=== PATIENT | female | born 1965 | race African-American/Black ===

== ENCOUNTER 2020-04-23 10:53 | Inpatient (IN) | payer BC, SELFPAY ==
[~2020-04-23] VITALS: Ht 172.7 cm; Wt 74.8 kg
[2020-04-23] MEDS ORDERED: NACL 0.9% 1,000 ML IV ONE (10:57)
[2020-04-23] MEDS ORDERED: KETOROLAC TROMETHAMINE 30 MG VIAL IVP ONE (11:00)
[2020-04-23 11:17] VITALS: BP_SYST 142
[2020-04-23] MEDS ORDERED: CEFEPIME 2 GM in D5W 100 ML IV ONE (11:45)
[2020-04-23 12:14] LABS: BASOPHILS # (AUTO) 0.1 K/uL (0.0-0.2); BASOPHILS % (AUTO) 0.5 % (0.0-2.0); EOSINOPHILS % (AUTO) 0.2 % (0.0-4.0); HEMATOCRIT 44.5 % (36-48); HEMOGLOBIN 14.4 g/dL (12.0-16.0); LYMPHOCYTES # (AUTO) 1.3 K/uL (1.0-5.5); LYMPHOCYTES % (AUTO) 10.7 % (20.5-51.5); MEAN CORPUSCULAR HEMOGLOBIN 28 pg (27-31); MEAN CORPUSCULAR HGB CONC 32 % (32-36); MEAN CORPUSCULAR VOLUME 86 fL (79.0-98.0); MONOCYTES # (AUTO) 0.4 K/uL (0.0-1.0); MONOCYTES % (AUTO) 3.6 % (1.7-9.3); NEUTROPHILS # (AUTO) 10.4 K/uL (1.8-7.7); PLATELET COUNT (AUTO) 231 K/uL (130-430); RED BLOOD CELL COUNT(AUTO) 5.17 MIL/uL (4.2-6.2); RED CELL DISTRIBUTION WIDTH 16.8 % (9.0-15.0); WHITE BLOOD COUNT (AUTO) 12.3 K/uL (4.8-10.8)
[2020-04-23 12:23] LABS: CALCIUM 9.8 mg/dL (8.4-11.0); CREATININE 1.35 mg/dL (0.55-1.30); POTASSIUM 4.2 mmol/L (3.5-5.1)
[2020-04-23 12:29] LABS: ALBUMIN 3.8 g/dL (3.4-4.8); TOTAL BILIRUBIN 0.8 mg/dL (0.0-1.0)
[2020-04-23] MEDS ORDERED: LR 1,000 ML IV ONE (12:45)
[2020-04-23 14:38] LABS: BILIRUBIN,URINE NEGATIVE (NEGATIVE); BLOOD, URINE NEGATIVE (NEGATIVE); CLARITY/URINE CLEAR (CLEAR); COLOR,URINE YELLOW (YELLOW); GLUCOSE,URINE NEGATIVE (NEGATIVE); KETONES,URINE NEGATIVE (NEGATIVE); LEUKOCYTE ESTERASE ,URINE NEGATIVE (NEGATIVE); NITRITE, URINE NEGATIVE (NEGATIVE); PROTEIN URINE NEGATIVE (NEGATIVE); UROBILINOGEN,URINE 0.2 (0.2-1.0)
[2020-04-23] MEDS ORDERED: MORPHINE 4 MG/ML INJ. SYRINGE IVP ONE (16:45)
[2020-04-23] MEDS ORDERED: fentaNYL CITRATE/PF 100 MCG/2 ML AMP IVP PRN ×2 (19:30)
[2020-04-23] MEDS ORDERED: ONDANSETRON HCL 4 MG/2 ML VIAL IVP PRN ×2 (19:30→20:15)
[2020-04-23] MEDS ORDERED: MORPHINE 2 MG/ML INJ. SYRINGE IVP PRN (20:15)
[2020-04-23] MEDS ORDERED: HYDROcodone/ACETAMIN 5-325 MG TAB (NORCO/ VICODIN) PO PRN (20:15)
[2020-04-23 20:50] VITALS: BP_SYST 161
[2020-04-24 00:08] VITALS: BP_SYST 153
[2020-04-24] MEDS: ACETAMINOPHEN 325 MG TABLET PO PRN ×2 (00:12→08:17)
[2020-04-24] MEDS ORDERED: PIPERACILLIN/TAZOBACTAM 3.375 GM/VIAL (ZOSYN) IV ONE (00:50)
[2020-04-24] MEDS: PIPERACILLIN/TAZO 3.375/DEX-IS 50 ML IV SCH ×3 (00:53→14:02)
[2020-04-24 04:00] VITALS: BP_SYST 153
[2020-04-24 07:46] LABS: BASOPHILS # (AUTO) 0.1 K/uL (0.0-0.2); BASOPHILS % (AUTO) 0.4 % (0.0-2.0); EOSINOPHILS % (AUTO) 0.2 % (0.0-4.0); HEMATOCRIT 37.5 % (36-48); HEMOGLOBIN 12.3 g/dL (12.0-16.0); LYMPHOCYTES # (AUTO) 2.5 K/uL (1.0-5.5); LYMPHOCYTES % (AUTO) 17.5 % (20.5-51.5); MEAN CORPUSCULAR HEMOGLOBIN 28 pg (27-31); MEAN CORPUSCULAR HGB CONC 33 % (32-36); MEAN CORPUSCULAR VOLUME 85 fL (79.0-98.0); MONOCYTES # (AUTO) 0.9 K/uL (0.0-1.0); MONOCYTES % (AUTO) 6.6 % (1.7-9.3); NEUTROPHILS # (AUTO) 10.6 K/uL (1.8-7.7); NEUTROPHILS % (AUTO) 75.3 % (40.0-70.0); PLATELET COUNT (AUTO) 235 K/uL (130-430); RED BLOOD CELL COUNT(AUTO) 4.42 MIL/uL (4.2-6.2); RED CELL DISTRIBUTION WIDTH 16.7 % (9.0-15.0); WHITE BLOOD COUNT (AUTO) 14.1 K/uL (4.8-10.8)
[2020-04-24 08:10] VITALS: BP_SYST 156
[2020-04-24 12:34] VITALS: BP_SYST 148
[2020-04-24 16:38] VITALS: BP_SYST 140
[2020-04-24 18:06] VITALS: BP_SYST 140
[2020-04-24] MEDS ORDERED: GLYCOPYRROLATE 0.2 MG/ML VIAL IJ ONE (18:15)
[2020-04-24] MEDS ORDERED: fentaNYL CITRATE/PF 100 MCG/2 ML AMP IVP ONE (18:15)
[2020-04-24] MEDS ORDERED: ROCURONIUM BROMIDE 10 MG/ML (ZEMURON) IV ONE (18:15)
[2020-04-24] MEDS ORDERED: PROPOFOL 200MG/ 20ML VIAL (DIPRIVAN) IV ONE (18:15)
[2020-04-24] MEDS ORDERED: SEVOFLURANE 15 MIN GAS INH ONE (18:15)
[2020-04-24] MEDS ORDERED: BUPIVACAINE /PF 0.5% 30 ML VIAL INJ ONE (18:15)
[2020-04-24] MEDS ORDERED: NS IRRIG SOLN 1000 ML IR ONE (18:15)
[2020-04-24] MEDS ORDERED: NEOSTIGMINE METHYLSULFATE 1 MG/ML, 10 ML VIAL IVP ONE (18:15)
[2020-04-24] MEDS ORDERED: MIDAZOLAM HCL 5 MG/5 ML VIAL IVP ONE (18:15)
[2020-04-24] MEDS ORDERED: LR 1,000 ML IV.SOLN IV ONE (18:15)
== END 2020-04-24 19:13 | disposition home or self-care (01) | DRG 342 ==
LOC: SED 10:53 → SMU 12:43 → SDS 12:43 → SMU 12:49 → SDS 04-24 20:30
PROVIDERS: ADMIT Surgery; ATTEND Surgery
PROC: 0UT64ZZ Resection of Left Fallopian Tube, Percutaneous Endoscopic Approach (ICD-10-PCS; 2020-04-23)
PROC: 0UT14ZZ Resection of Left Ovary, Percutaneous Endoscopic Approach (ICD-10-PCS; 2020-04-23)
PROC: 0DTJ4ZZ Resection of Appendix, Percutaneous Endoscopic Approach (ICD-10-PCS; principal; 2020-04-23 18:00)
DX: K35.80 Unspecified acute appendicitis (principal); N83.512 Torsion of left ovary and ovarian pedicle; K66.0 Peritoneal adhesions (postprocedural) (postinfection); Z90.710 Acquired absence of both cervix and uterus
CPT/HCPCS: 36415; 80053; 81003; 85025; 87040-TC; 88302; 88305; 93005; 96361; 96365; 96375; 99285; C1727; J0692; J1885; J2250; J2270; J2543; J2704; J2710; J3010; J3490; J7040; J7060; J7120; U0003-CS